=== PATIENT | female | born 1975 | race Native Hawaiian/Other Pacific Islander ===

== ENCOUNTER 2017-10-01 12:05 | Outpatient (CLI) | payer OTHER | END 2017-10-01 20:14 | disposition home or self-care (01) | LOC: RAD 12:05 | DX: Z01.818 Encounter for other preprocedural examination (principal) ==

== ENCOUNTER 2022-01-01 15:49 | Outpatient (CLI) | payer OTHER ==
[2022-01-01 16:25] LABS: POTASSIUM 3.7 mmol/L (3.6-5.2)
[2022-01-01 16:31] LABS: PLATELET COUNT 233 K/uL (152-353)
== END 2022-01-01 19:20 | disposition home or self-care (01) ==
LOC: CT 15:49 → LABW 15:49
PROVIDERS: ATTEND Nurse Practitioner Family
DX: R10.31 Right lower quadrant pain (principal); R10.829 Rebound abdominal tenderness, unspecified site; R10.13 Epigastric pain; R11.0 Nausea; R19.7 Diarrhea, unspecified
CPT/HCPCS: 36415; 80053; 82150; 83690; 85027; 86677; Q9963

== ENCOUNTER 2022-05-28 15:13 | Outpatient (CLI) | payer OTHER | END 2022-05-28 18:55 | disposition home or self-care (01) | LOC: RAD 15:13 | PROVIDERS: ATTEND Nurse Practitioner Family | DX: H57.89 Other specified disorders of eye and adnexa (principal); H02.844 Edema of left upper eyelid; R51.9 Headache, unspecified ==